=== PATIENT | male | born 1970 | race African-American/Black ===

== ENCOUNTER 2021-07-10 14:10 | Outpatient (CLI) | payer BC, SELFPAY ==
[2021-07-10 14:41] LABS: Basophils Absolute Auto 0.1 K/mm3 (0.0-0.1); Eosinophils Absolute Auto 0.1 K/mm3 (0-0.3); Eosinophils Percent Auto 1.7 % (0-4.4); Hematocrit 32.6 % (42.0-52.0); Hemoglobin 10.3 g/dL (14.0-18.0); Immature Granulocyte Absolute 0.01 K/mm3 (0.00-0.031); Immature Granulocyte Percent A 0.2 % (0-0.5); Lymphocytes Absolute Auto 2.35 K/mm3 (0.9-3.2); Lymphocytes Percent Auto 45.4 % (18.3-44.2); Mean Corpuscular HGB Conc 31.6 g/dl (32-36); Mean Corpuscular Hemoglobin 21.6 pg (26-34); Mean Corpuscular Volume 68.3 fl (80-100); Mean Platelet Volume 10.1 fl (7.4-10.4); Monocytes Absolute Auto 0.8 K/mm3 (0.1-0.6); Monocytes Percent Auto 15.4 % (2.6-8.5); Neutrophils Absolute Auto 1.9 K/mm3 (1.3-6.7); Neutrophils Percent Auto 36.3 % (45.5-73.1); Platelet Count Result 236 k/mm3 (150-375); Red Blood Count 4.77 M/mm3 (4.6-6.20); Red Cell Distribution Width 17.1 % (11.5-14.5); White Blood Count 5.2 K/mm3 (4.5-10.0)
[2021-07-10 15:34] LABS: Iron 25 ug/dL (49-181)
[2021-07-10 15:43] LABS: Percent Iron Saturation 5 % (20-50)
[2021-07-12 15:38] LABS: NIL 0.03 IU/mL; Quantiferon TB Plus, 1T NEGATIVE (NEGATIVE)
[2021-07-18 22:47] LABS: ANCA Screen Negative (Negative); Myeloperoxidase Ab <1.0 AI (<1.0); Proteinase-3 Ab <1.0 AI (<1.0); S cerevisiae Ab (IgA) 15.8 U (<=20.0); S cerevisiae Ab (IgG) 13.7 U (<=20.0)
== END 2021-07-10 14:11 | disposition home or self-care (01) ==
PROVIDERS: PCP Family Medicine; Visit Provider Internal Medicine Gastroenterology
DX: K50.90 Crohn's disease, unspecified, without complications (principal)
CPT/HCPCS: 36415; 83540; 83550; 85025; 86036; 86480; 86671

== ENCOUNTER → 2022-05-28 15:50 | Outpatient (CLI) | payer BC, SELFPAY ==
--- NOTE | ~2022-05-28 | US_ITS ---
EXAMINATION: US thyroid DATE: 05/28/2022 16:14 INDICATION: Nontoxic goiter, unspecified. TECHNIQUE: Multiple ultrasound images of the thyroid were obtained. COMPARISON: None. FINDINGS: The right thyroid lobe measures 4.8 x 1.6 x 2.2 cm. The left thyroid lobe measures 5.7 x 1.7 x 2.1 c m. In the inferior left thyroid lobe, there is a 1.8 cm solid, hypoechoic, wider than tall nodule wi th irregular margin without echogenic foci (TI-RADS TR4). In the right thyroid lobe, there is a 1.1 c m solid, hypoechoic, wider than tall nodule with ill-defined margin without echogenic foci (TR4). IMPRESSION: 1. Thyroid nodules. Ultrasound-guided fine-needle aspiration of the left thyroid nodule is recommende d. Reviewed, dictated and finalized at location [facility]. CLEANER IMPRESSION: 1. Thyroid nodules. Ultrasound-guided fine-needle aspiration of the left thyroi d nodule is recommended.
== END ==
PROVIDERS: PCP Family Medicine; Visit Provider Internal Medicine Endocrinology, Diabetes & Metabolism
DX: E04.9 Nontoxic goiter, unspecified (principal)
CPT/HCPCS: 76536

== ENCOUNTER 2022-07-03 09:05 | Outpatient (CLI) | payer BC, SELFPAY ==
--- NOTE | ~2022-07-03 | US_ITS ---
EXAMINATION: US thyroid DATE: 07/03/2022 10:22 INDICATION: Thyroid nodule TECHNIQUE: Multiple ultrasound images of the thyroid were obtained. 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 No discrete thyroid nodule identified at the region of concern with appearance on the prior ul trasound appears to result from a combination of small vessels and refraction artifact. IMPRESSION: 1. No thyroid nodule identified at the region of concern with appearance on prior ultrasound likely r esulting from a combination of a few small vessels and superimposed refracture artifact and the plann ed biopsy was deferred. Would recommend annual follow-up based upon the previously noted 1.1 cm TI RA DS 4 nodule in the right thyroid. Reviewed, dictated and finalized at location [facility]. IMPRESSION: 1. No thyroid nodule identified at the region of concern with appearance on olegario or ultrasound likely resulting from a combination of a few small vessels and eduardo perimposed refracture artifact and the planned biopsy was deferred. Would recom mend annual follow-up based upon the previously noted 1.1 cm TI RADS 4 nodule i n the right thyroid.
== END 2022-07-03 09:06 | disposition home or self-care (01) ==
PROVIDERS: PCP Family Medicine; Visit Provider Internal Medicine Endocrinology, Diabetes & Metabolism
DX: E04.1 Nontoxic single thyroid nodule (principal)
CPT/HCPCS: 76536

== ENCOUNTER 2022-07-10 17:04 | Emergency (ER) | payer BC, SELFPAY ==
[2022-07-10 17:17] VITALS: BP 124/77; PULSE 109; RESP 16; TEMP 37.5; O2SAT 99
--- NOTE | 2022-07-10 17:20 | ED.URI ---
HPI - URI/Sore Throat General Chief Complaint: Upper Respiratory Infection Stated Complaint: Sinus Time Seen by Provider: 07/10/22 17:20 Source: patient Mode of arrival: ambulatory Limitations: no limitations History of Present Illness HPI Narrative: 51-year-old male presents with complaint of bilateral ear pain, nasal congestion, sinus pressure. Reports that he has had symptoms for approximately 6 weeks. [facility]st [facility] at [facility] and told viral. Went back and was told bacterial sinus infection and given doxycycline and prednisone. Reports no relief of symptoms. 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 States he recently flew and ear pain is now worse. Afebrile. Patient reports that he is very fatigued today. Is requesting a COVID and influenza test to rule them out . Would like an antibiotic if testing is negative. All systems reviewed and negative except as noted above. Related Data Home Medications Medication Instructions Recorded Confirmed anastrozole 1 mg tablet 1 mg PO DAILY 07/10/21 02/19/22 atorvastatin 20 mg tablet (Lipitor) 20 mg PO DAILY 07/10/21 02/19/22 metformin 500 mg/5 mL oral solution 500 mg PO DAILY 07/10/21 02/19/22 testosterone cypionate 200 mg/mL 200 mg IM ONCE 07/10/21 02/19/22 intramuscular oil (Depo-Testosterone) lisdexamfetamine 30 mg capsule 40 mg PO DAILY 02/19/22 02/19/22 (Vyvanse) lisinopril 20 mg tablet 20 mg PO DAILY 02/19/22 02/19/22 Allergies Allergy/AdvReac Type Severity Reaction Status Date / Time Penicillins Allergy Mild Unknown Verified 07/10/22 17:08 Review of Systems Review of Systems: CONSTITUTIONAL: Denies fever, chills, or sweats. Reports fatigue. EYES: Denies visual changes, redness, or discharge. ENT: Reports rhinorrhea, congestion, sinus pressure, postnasal drainage, sore throat, bilateral ear pain. CARDIOVASCULAR: Denies chest pain, palpitations, or edema. RESPIRATORY: Denies cough or dyspnea. GASTROINTESTINAL: Denies abdominal pain, nausea, vomiting, or diarrhea. GENITOURINARY: Denies dysuria or hematuria. SKIN: Denies rash or itching. MUSCULOSKELETAL: Denies back pain, joint pain, or myalgia. NEUROLOGIC: Denies headache, numbness, or weakness. PSYCHIATRIC: Denies anxiety or depression. All other systems reviewed are negative, except as documented in HPI. PMFSH Surgical History Surgical History H/O colonoscopy Family History Family History Father Diabetes mellitus Alcohol abuse Mother Alcohol abuse Asthma Diabetes mellitus Hypertension Depression Social History Social History Smoking status: Never smoker Second hand tobacco smoke exposure: Yes Alcohol intake: never Substance use: never Living arrangements: with family Occupation/Education: occupation Gender identity (if verbalized by the patient): Male Comments At time of signature, agree with nursing past medical, surgical, social and family history. There is no relevant family history pertinent to the presenting complaint. Exam Narrative: GENERAL: This is a well-nourished, well-developed patient, in no apparent distress. HEAD: normocephalic, atraumatic. EYES: PERRL. Sclera clear/white. Vision is grossly intact. EARS: External ears normal, auditory canals clear and without drainage, Fluid bilateral TMs, TMs opaque, dull light reflex. NOSE: External nose normal with Purulence drainage, erythema and swelling to both nares. Bilateral maxillary sinus tenderness. THROAT: Mucous membranes moist, Erythematous, swollen postnasal drainage. NECK: Neck supple, non-tender without lymphadenopathy, masses or thyromegaly. CARDIOVASCULAR: Regular rate and rhythm without murmurs, gallops, or rubs. RESPIRATORY: Clear to auscultation. Breath sounds equal bilaterally. No wheez
== END 2022-07-10 18:02 | disposition home or self-care (01) ==
PROVIDERS: Emergency Provider Nurse Practitioner Family; PCP Family Medicine
DX: J01.90 Acute sinusitis, unspecified (principal); Z20.822 Contact with and (suspected) exposure to COVID-19
CPT/HCPCS: 87426; 87804; 99213; C9803; G0463